=== PATIENT | female | born 1960 ===

== ENCOUNTER → 2017-06-30 | Outpatient (CLI) | payer OTHER ==
[~2017-06-30] MED LIST: AZIT-1 PO; CLAR-13 PO; LEVO-3 PO; LORA-802 PO; TRI05T TP
[2017-06-30 09:30] LABS: PLATELET COUNT, AUTOMATED 228 K/uL (150-450)
== END ==
LOC: LAB 09:14
PROVIDERS: ATTEND Nurse Practitioner Family
DX: Z01.419 Encounter for gynecological examination (general) (routine) without abnormal findings (principal); E03.9 Hypothyroidism, unspecified
CPT/HCPCS: 36415; 82040; 82247; 82310; 82374; 82435; 82465; 82565; 82947; 83718; 84075; 84132; 84155; 84295; 84443; 84450; 84460; 84478; 84520; 85025

== ENCOUNTER → 2017-07-07 | Outpatient (CLI) | payer OTHER ==
[~2017-07-07] MED LIST changes: +LEVO88TA45 PO
== END ==
LOC: LAB 09:11
PROVIDERS: ATTEND Nurse Practitioner Primary Care
DX: R30.0 Dysuria (principal)
CPT/HCPCS: 81001

== ENCOUNTER → 2017-07-08 | Outpatient (CLI) | payer OTHER ==
[~2017-07-08] MED LIST changes: +IOPAMIDOL 76% 75 ML INFUS BTL 75 ML ONE
--- NOTE | 2017-07-08 15:56 | RADIOLOGY IMAGING REPORT ---
FACILITY: [facility] PATIENT NAME: Martha Carvalho : 1960 MR: [id number] V: [id number] EXAM DATE: ORDERING PHYSICIAN: ALBA MOURA TECHNOLOGIST: Location: [facility] Patient: Martha Carvalho : 1960 Visit/Account:[id number] Date of Sevice: 07/08/2017 ABDOMEN/PELVIS W/WO CONTRAST HISTORY: Dysuria, left low back pain, abdominal bloating TECHNIQUE: Axial images acquired through the abdomen/pelvis both with and without IV contrast.. Deysi nal and sagittal reformatting also performed. Dose Lowering Technique One of the following dose optimization techniques was utilized in the performance of this exam: Autom ated exposure control; adjustment of the mA and/or kV according to the patient's size; or use of an i terative reconstruction technique. Specific details can be referenced in the facility's radiology C T exam operational policy. CONTRAST: 75 mL Isovue-370 COMPARISON: None. FINDINGS: Visualized lung bases: Negative. Hepatobiliary: Negative. Spleen: Negative. Adrenals: Negative. Pancreas: Negative. Kidneys ureters and bladder: Tiny cortical hypodensity lower pole left kidney likely represents a cys t although is too small to characterize. There is no demonstration of urolithiasis, hydronephrosis o r hydroureter. Genitalia: Uterus is enlarged retroverted and contains multiple masses which may represent fibroids. The largest is 3.7 cm in diameter and fundal. There is a 2.5 cm left adnexal cyst. Left adnexal v essels are extremely prominent and tortuous with dilatation of the left ovarian vein GI: Is diverticulosis left-sided colon although no CT evidence of acute diverticulitis. Vessels/spaces/nodes: Negative. Bones/soft tissues: There is a small umbilical hernia containing fat. Additional findings: None pertinent. IMPRESSION: No demonstration of urolithiasis, hydronephrosis or hydroureter The uterus is enlarged and retroverted and contains multiple masses which may represent fibroids. Th e largest measures 3.7 cm in diameter and is located in the fundus. This could be further evaluated with pelvic ultrasound. 2.5 cm left adnexal cyst and very prominent tortuous left adnexal vessels with dilatation of the left ovarian vein. Report Dictated By: Izabela Villalobos MD at 07/08/2017 3:43 PM Report E-Signed By: Izabela Villalobos MD at 07/08/2017 3:51 PM WSN:[email or web address]
== END ==
LOC: CT 12:14
PROVIDERS: ATTEND Nurse Practitioner Primary Care
DX: N85.8 Other specified noninflammatory disorders of uterus (principal); K42.9 Umbilical hernia without obstruction or gangrene; N83.202 Unspecified ovarian cyst, left side
CPT/HCPCS: 74178; Q9967

== ENCOUNTER → 2017-09-01 | Outpatient (CLI) | payer OTHER ==
[~2017-09-01] MED LIST changes: -IOPAMIDOL 76% 75 ML INFUS BTL 75 ML ONE
== END ==
LOC: LAB 09:25
PROVIDERS: ATTEND Nurse Practitioner Family
DX: E03.9 Hypothyroidism, unspecified (principal)
CPT/HCPCS: 36415; 84443

== ENCOUNTER 2017-10-09 03:12 | Observation (INO) | payer OTHER ==
--- NOTE | 2017-10-08 22:11 | HISTORY AND PHYSICAL ---
DATE OF ADMISSION: October 09, 2017 CHIEF COMPLAINT Pelvic mass. HISTORY OF PRESENT ILLNESS Patient is a 56-year-old 2, para 2, with persistent ovarian cyst as well as leiomyomas. She was noted to have workup that identified the cyst and which was followed by ultrasound. CA-125 was slightly elevated. The mass was persistent. I had a discussion with Dr. Hui, who is a gynecologic oncologist and recommended hysterectomy with removal in [place]. After discussion of risks and alternatives, patient wished to proceed with robotic-assisted hysterectomy, bilateral salpingo-oophorectomy, possible modified Jose culdoplasty, and diagnostic cystoscopy. CURRENT MEDICATIONS * Clotrimazole 1% topical. * Flonase p.r.n. * Levothyroxine 88 mcg. * Motrin as needed. * Zyrtec 10 mg. ALLERGIES CELEBREX, she gets a rash. REVIEW OF SYSTEMS GENITOURINARY: Per HPI. GENERAL, SKIN, EYES, EARS, NOSE, MOUTH, NECK, RESPIRATORY, CARDIOVASCULAR, GASTROINTESTINAL, NEUROLOGIC, AND PSYCHIATRIC: All reviewed and noncontributory. 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 * Hypothyroidism. SURGICAL HISTORY * 2009, right ankle repair. * 2012, lymph node biopsy in the right groin. * She has had two vaginal deliveries. FAMILY HISTORY Father with cardiovascular disease and hypertension. Mother with cardiovascular disease and hypertension. SOCIAL HISTORY She drinks occasionally. She is a nonsmoker. No illicit drug use. She is retired. PHYSICAL EXAMINATION VITAL SIGNS: BP 110/70, temp 97.9, weight 182. CONSTITUTIONAL: Well-developed, well-nourished female in no distress. SKIN: Without rash or lesions. NECK: Supple, without masses. HEART: Regular rate and rhythm. LUNGS: Clear to auscultation bilaterally. ABDOMEN: Soft, nontender, nondistended. Bowel sounds positive. EXTREMITIES: Nontender, no edema. PSYCHIATRIC: Alert and oriented times three. Normal mood and affect. PELVIC: Normal external female genitalia. Well-estrogenized vaginal lining. Her uterus was enlarged and irregularly shaped, nontender. ASSESSMENT Uterine leiomyomas with intramural leiomyomas with left-sided persistent ovarian cyst. Volume of the uterus was 335 mL. PLAN Plan to perform robotic-assisted hysterectomy with bilateral salpingo- oophorectomy, diagnostic cystoscopy, and possible modified Jose culdoplasty. [facility]
[~2017-10-09] VITALS: Ht 172.7 cm; Wt 80.3 kg
[2017-10-09] VITALS (11 sets, daily range): BP systolic 98–112; BP diastolic 60–84
[~2017-10-09 03:12] MED LIST changes: +CETI10CA8 PO; +FLUT16SP19 NS; +GING550C2 PO; +MAGN250T34 PO; +MAGN400T11; +MULT1CAP59 PO; +tumeric PO
[2017-10-09 07:28] LABS: PLATELET COUNT, AUTOMATED 256 K/uL (150-450)
[2017-10-09] MEDS ORDERED: ROPIVACAINE 0.2% 20 ML VIAL ONE (07:37)
[2017-10-09] MEDS ORDERED: ONDANSETRON 4 MG/2 ML VIAL ONE (07:50)
[2017-10-09] MEDS ORDERED: LIDOCAINE MPF 1% 5 ML VIAL ONE (07:50)
[2017-10-09] MEDS ORDERED: fentaNYL CITR 100 MCG/2 ML AMP ONE ×2 (07:50→12:35)
[2017-10-09] MEDS ORDERED: ROCURONIUM BROM 10 MG/ML 10 ML ONE ×2 (07:50→10:28)
[2017-10-09] MEDS ORDERED: DEXAMETHASONE SOD PHOS 10MG/ML ONE (07:50)
[2017-10-09] MEDS ORDERED: PROPOFOL EMUL(*) 10MG/ML 20 ML 20 ML ONE (07:50)
[2017-10-09] MEDS ORDERED: FAMOTIDINE 20 MG TAB PO ONE (08:00)
[2017-10-09] MEDS ORDERED: MIDAZOLAM 2 MG/2 ML VIAL IVP PRN (08:00)
[2017-10-09] MEDS ORDERED: LIDOCAINE/SOD BICARB 8.4% SYR ID ONE (08:00)
[2017-10-09] MEDS ORDERED: cefOXitin/DEX(*) 2GM/50ML PREM 50 ML IVPB ONE (08:00)
[2017-10-09] MEDS ORDERED: PHENAZOPYRIDINE 200 MG TAB PO ONE (08:00)
[2017-10-09] MEDS ORDERED: HYDROmorphone HCL 2 MG TAB PO ONE (08:00)
[2017-10-09] MEDS ORDERED: NORMOSOL R SOLN(*) 1000 ML BAG 1,000 ML IV PRN (08:00)
--- NOTE | 2017-10-09 08:35 | Post Operative Note ---
Operative Note - ELECTRICAL TEST ENGINEER Operative Day Date: Oct 09, 2017 Physicians Surgeon: COSME Flash Oven Operator: RIAZ STANLEY Anesthesia: PARIKH Diagnosis Pre-Op Diagnosis: LEFT PELVIC MASS LEIOMYOMA INTRAMURAL Post-Op Diagnosis: SAME Procedure Findings: UTERUS 10X6 CM 268 GMS NORMAL LEFT AND RIGHT ATROPHIC OVARY NORMAL BLADDER AND BILATERAL URETERAL JETS AT END OF CASE [id number] Procedure(s): RAH BSO DX CYSTO Complications: 0 Fluids Fluids: 1300 CC NR IV Estimated Blood Loss: 100 CC Dictated Date OP Note Dictated: Oct 09, 2017 Time OP Note Dictated: 12:05 Copies to: BASSAM AGUIAR MD, JOHN MD Oct 09, 2017 08:35
[2017-10-09] MEDS ORDERED: PHENYLEPHRINE 10 MG/1 ML VIAL ONE (09:10)
[2017-10-09] MEDS ORDERED: IBUP800T37 PO (09:15)
[2017-10-09] MEDS ORDERED: HYDR2TAB4 PO (09:15)
--- NOTE | 2017-10-09 09:17 | OB/GYN Discharge Summary ---
Discharge Summary Reason for Hosp/Final Diag: (1) S/P robot-assisted surgical procedure Hospital Course & Plan: RAH PERFORMED WITHOUT COMPLICATIONS ON DAY 1, Pain controlled, voiding Tolerating diet and activity. EKG changes seen in PACU with negative troponins, bradycardia resolved, no cardiac complaints today, will follow up with primary provider for further workup of cardiac issues as indicated Lates Vital Signs Vital Signs Date Time Temp Pulse Resp B/P (MAP) Pulse Ox O2 Delivery O2 Flow Rate FiO2 10/09/17 08:02 98.2 59 16 112/84 (93) 97 Room Air Weight (Pounds): 177 Result Diagram: 10/09/17 0722 Condition: Improved Discharge: Home Home Meds Active Scripts Ibuprofen (IBUPROFEN) 800 Mg Tablet, 1 TAB PO Q8H, #30 TAB 0 Refills Take with food every 8 hours. Prov:BASSAM NICOLE MD 10/09/17 Hydromorphone Hcl (HYDROMORPHONE HCL) 2 Mg Tablet, 2-4 MG PO Q4H for PAIN, #20 TAB 0 Refills Prov:BASSAM NICOLE MD 10/09/17 Levothyroxine Sodium (LEVOTHYROXINE SODIUM) 88 Mcg Tablet, 88 MCG PO QDAY, #90 TAB 1 Refill Prov:LOIS HELM APRN-C 09/02/17 Triamcinolone Acet 0.5% (TRIAMCINOLONE ACETONIDE 0.5%) 15 Gm Cr, 1 LUCI TP BID Y for eczema, #1 GM 1 Refill Prov:LOIS HELM APRN-C 04/21/16 Reported Medications Bettie Root (Bettie Root) 550 Mg Capsule, 550 MG PO DAILY 10/02/17 [tumeric] 600 CAP No Conflict Check, 1 CAP PO DAILY 10/02/17 Magnesium Oxide (MAGNESIUM) 250 Mg Tablet, 250 MG PO DAILY 10/02/17 Multivitamin (MULTIVITAMINS) 1 Each Capsule, 1 EACH PO DAILY, CAPSULE 10/02/17 Fluticasone Prop 50 Mcg Ns (FLONASE 50 MCG NS) 16 Gm [place].susp, 2 SPRAY NS DAILY Y for ALLERGY SYMPTOMS, BOT 10/02/17 Cetirizine Hcl (ZYRTEC) 10 Mg Capsule, 10 MG PO QDAY Y for ALLERGY SYMPTOMS, CAPSULE 10/02/17 Discontinued Reported Medications Scopolamine (Scopolamine) 1 Mg/3 Day Patch.td.3, 1 MG TD ONCE for 3 Days, #1 10/09/17 Magnesium Oxide (Mgo) 400 Mg Tablet, 250 10/02/17 Follow up with: Dr. Nicole [phone] Follow up in: 6 wks PP or PO, 2 wks PO Discharge Diet: As Tolerates Discharge Activity: Pelvic Rest Copies to: BASSAM NICOLE MD; LOIS HELM APRN POLYSOM TECH-C BASSAM NICOLE MD Oct 09, 2017 09:17
[2017-10-09] MEDS ORDERED: GLYCOPYRROLATE 1 MG/5 ML INJ ONE (09:19)
[2017-10-09] MEDS ORDERED: SUGAMMADEX SOD 500 MG/5 ML SDV ONE (11:50)
[2017-10-09] MEDS ORDERED: DLR(*) 1000 ML BAG 1,000 ML IV PRN (11:58)
[2017-10-09] MEDS ORDERED: FAMOTIDINE(*) 20MG/50ML PREMIX 50 ML IVPB PRN (11:58)
[2017-10-09] MEDS ORDERED: PROMETHAZINE 25 MG/ML 1 ML AMP IVP PRN (12:00)
[2017-10-09] MEDS ORDERED: INFLUENZA VIRUS VAC 0.5 ML SYR IM ONE (12:00)
[2017-10-09] MEDS ORDERED: ONDANSETRON 4 MG/2 ML VIAL IV PRN (12:00)
[2017-10-09] MEDS ORDERED: METOCLOPRAMIDE 10 MG/2 ML SDV IV PRN (12:00)
[2017-10-09] MEDS: KETOROLAC 30 MG/ML VIAL IVP SCH ×3 (12:31→23:49)
[2017-10-09] MEDS: ACETAMINOPHEN(*)1000 MG/100 ML 100 ML IVPB SCH ×3 (12:43→23:49)
[2017-10-09] MEDS: SIMETHICONE 80 MG CHEW CHEW SCH ×3 (13:00→21:19)
[2017-10-09] MEDS ORDERED: GLYCOPYRROLATE 0.2MG/ML 1 ML INJ ONE (13:16)
[2017-10-09] MEDS ORDERED: SCOP1PAT16 TD (13:36)
--- NOTE | 2017-10-09 14:13 | EKG ---
FACILITY: [facility] PATIENT NAME: LEON PENA : [id number] MR: [id number] V: [id number] EXAM DATE: ORDERING PHYSICIAN: DELMA PARIKH TECHNOLOGIST: BENNIE Augustin Reason : BISHOP Blood Pressure : / mmHG Vent. Rate : 041 BPM Atrial Rate : 041 BPM P-R Int : 154 ms QRS Dur : 076 ms QT Int : 524 ms P-R-T Axes : 077 091 086 degrees QTc Int : 432 ms Marked sinus bradycardia with premature ventricular complex Rightward axis Low voltage QRS ST and T wave abnormality, consider anterior ischemia Abnormal ECG No previous ECGs available Confirmed by YEIMI BARNARD ([id number]) on 10/09/2017 4:21:19 PM Referred By: COSME Confirmed By:YEIMI BARNARD
--- NOTE | 2017-10-09 14:42 | Hospitalist Consultation ---
History of Present Illness Requesting Physician Dr. Aguiar Reason for Consult Abnormal EKG Chief Complaint Abnormal EKG History of Present Illness 56yo female with PMHx significant for localized MAC infection, uterine fibroids , hypothyroidism. She underwent robotic assisted hysterectomy with Dr. Aguiar earlier today. Post-operatively she was noted to be bradycardic. She had EKG done which showed T wave inversion and flattening through precordial leads. She denies any CP or dyspnea at this time. She did admit to some chest "fullness" while in PACU. She has no history of heart or lung disease. She exercises on a regular basis without problems. She does recall being told she had an abnormality on her EKG done for . She has family history of CAD in brother at ~60 years old (CABG), mother at 70+ (CABG), and father (CABG) at 80. She does not smoke (her mother did for short time while she was growing up). She does not have a history of HTN, DM, or hyperlipidemia. History Problems: (1) S/P surgical manipulation of ankle joint Status: Resolved (2) History of MAC infection Status: Chronic (3) Hypothyroidism Status: Chronic Home Meds Active Scripts Ibuprofen (IBUPROFEN) 800 Mg Tablet, 1 TAB PO Q8H, #30 TAB 0 Refills Take with food every 8 hours. Prov:BASSAM AGUIAR MD 10/09/17 Hydromorphone Hcl (HYDROMORPHONE HCL) 2 Mg Tablet, 2-4 MG PO Q4H for PAIN, #20 TAB 0 Refills Prov:BASSAM AGUIAR MD 10/09/17 Levothyroxine Sodium (LEVOTHYROXINE SODIUM) 88 Mcg Tablet, 88 MCG PO QDAY, #90 TAB 1 Refill Prov:LOIS HELM APRN PROPELLER ENGINEER-C 09/02/17 Triamcinolone Acet 0.5% (TRIAMCINOLONE ACETONIDE 0.5%) 15 Gm Cr, 1 LUCI TP BID Y for eczema, #1 GM 1 Refill Prov:LOIS HELM APRN PROPELLER ENGINEER-C 04/21/16 Reported Medications Scopolamine (Scopolamine) 1 Mg/3 Day Patch.td.3, 1 MG TD ONCE for 3 Days, #1 10/09/17 Bettie Root (Bettie Root) 550 Mg Capsule, 550 MG PO DAILY 10/02/17 [tumeric] No Conflict Check, PO DAILY 10/02/17 Magnesium Oxide (MAGNESIUM) 250 Mg Tablet, 250 MG PO DAILY 10/02/17 Magnesium Oxide (Mgo) 400 Mg Tablet, 250 10/02/17 Multivitamin (MULTIVITAMINS) 1 Each Capsule, 1 EACH PO DAILY, CAPSULE 10/02/17 Fluticasone Prop 50 Mcg Ns (FLONASE 50 MCG NS) 16 Gm [place].susp, 1 SPRAY NS BID Y for ALLERGY SYMPTOMS, BOT 10/02/17 Cetirizine Hcl (ZYRTEC) 10 Mg Capsule, 10 MG PO QDAY Y for ALLERGY SYMPTOMS, CAPSULE 10/02/17 Discontinued Reported Medications Loratadine (CLARITIN) 10 Mg Tablet, 10 MG PO PRN 02/20/14 Allergies: Coded Allergies: celecoxib (Unverified Allergy, Intermediate, RASH ALL OVER, 10/02/17) amoxicillin (Unverified Adverse Reaction, Intermediate, NAUSEA/VOMITING, ) clavulanic acid (Unverified Adverse Reaction, Intermediate, NAUSEA/ VOMITING, 10/02/17) Patient History: FH: CABG (coronary artery bypass surgery) FATHER MOTHER FH: COPD (chronic obstructive pulmonary disease) MOTHER FH: colon cancer GRANDFATHER GREAT AUNT FH: diabetes mellitus GRANDMOHTER GRANDMOHTER Hx Smoking: No Smoking Status: Never Smoker Caffeine Intake: Tea Caffeine/Cups Per Day: 1-2 Hx Alcohol Use: Yes Alcohol Used: Liquor Hx Substance Use Disorder: No Social Drug Use: Never History of IV Drug Use: No Review of Systems Cardiovascular: No Chest Pain, No Palpitations Respiratory: No Shortness of Breath Exam Vital Signs Vital Signs Date Time Temp Pulse Resp B/P (MAP) Pulse Ox O2 Delivery O2 Flow Rate FiO2 10/09/17 12:11 70 16 100 10/09/17 08:02 98.2 112/84 (93) Room Air General Appearance: Alert, Awake Neuro: No Gross deficits Eyes: PERRLA Cardiovascular: Regular Rate and Rhythm, No Edema Respiratory: Clear to Auscultation Chest: No Tenderness Extremities: Warm, Pulses (normal), Perfused Psych: Alert & Oriented X3 Medical Decision Making Data Points Result Diagram: 10/09/17 0722 Assessment and Plan Problems: (1) Abnormal EKG Status: Acute Assessment & Plan: She is asymptomatic, but does have T wave abnormalities on her current EKG. Her is going to get her old EKG for comparison. Agree, it may be edwards to admit to telemetry to monitor and check serial troponin levels. I suspect she is low probability this is an ischemic cardiac etiology. Will proceed with further work-up/treatment pending these results. Venous Thromboembolism Antithrombotics Is Pt On Any Antithrombotics?: No (recent surgery) YEIMI BARNARD MD Oct 09, 2017 14:42
--- NOTE | 2017-10-09 16:39 | OPERATIVE REPORT 1 ---
EVENT DATE: October 09, 2017 SURGEON: Armani Nicole MD ANESTHESIOLOGIST: Torey Grewal MD ANESTHESIA: General. PLASTIC MOLDING OPERATOR: Keli Benoit PA-C PREOPERATIVE DIAGNOSES 1. Left-sided pelvic mass. 2. Leiomyoma which is intramural. POSTOPERATIVE DIAGNOSES 1. Left-sided pelvic mass. 2. Leiomyoma which is intramural. PROCEDURE PERFORMED Robotic-assisted hysterectomy with bilateral salpingo-oophorectomy and diagnostic cystoscopy. COMPLICATIONS None. FLUIDS Normosol 1300 mL IV. ESTIMATED BLOOD LOSS 100 mL INDICATIONS Patient is a 56-year-old 2 with intramural leiomyomas and findings on ultrasound of a 2 cm cystic mass on her left ovary. After discussions of risks and alternatives, patient desired to proceed with robotic-assisted hysterectomy , bilateral salpingo-oophorectomy, and diagnostic cystoscopy. FINDINGS Uterus 10 x 6 cm, which was 268 g. Normal left and right atrophic-type ovaries. Cyst was not identified. Normal bladder and bilateral ureteral jets at the end of the case. DESCRIPTION OF PROCEDURE After informed consent was obtained, the patient was taken to the operating room with the IV running, placed in a supine position where general anesthesia was obtained without difficulty. She was then placed in the [facility], examined under anesthesia with the above findings. She was then prepped and draped in the usual fashion. A weighted speculum was placed into the vagina. The cervix was grasped with a single-toothed tenaculum. Uterus sounded to 10 cm. The VCare uterine manipulator was then sewn to the cervix with 0 Vicryl. After the insertion of the VCare to provide a means to manipulate the uterus, a George catheter was placed. Legs were lowered. Attention then turned to the abdomen where 0.2 Naropin was infiltrated above the umbilicus and a skin incision made with the scalpel. A Veress needle was advanced into the abdominal cavity. Normal CO2 filling pressures were noted. The 8 mm port was then advanced under laparoscopic visualization, and intra-abdominal placement was confirmed by laparoscopy. The #1 and #2 ports were placed on the patient's left lateral to the umbilical port in a similar fashion with 0.2 Naropin, skin incision with a scalpel, and advancing under direct visualization. The #4 port was placed lateral to the #3, and the medical technician assistant port was placed lateral to the # 4 port in a similar fashion, 0.2 Naropin, skin incision with a scalpel, and advancing the trocars under direct visualization. After all the trocars were placed, patient was placed in Trendelenburg positioning. The robot was positioned for docking. Docking and targeting were successful. The remainder of the arms were docked. Once all the arms were docked, a grasper was placed in #1, a scissors in #2, a camera was in #3, and the vessel sealer in #4. Once these were advanced into the abdominal cavity, Dr. Nicole attended the console for performance of the robotic hysterectomy. The inspection of the abdomen revealed normal anatomy. Searching for what could appear to be a cystic mass on ultrasound was not observed. Both ovaries appeared to be atrophic. No other abnormalities were noted. Attention was turned to the right tube and ovary, the right ovary identified and grasped with the grasper, the vessel sealer was used to grasp the infundibulopelvic ligament. This was coapted and transected. The mesosalpinx was then coapted and transected down towards the round ligament with the vessel sealer. The round ligament was then coapted and transected. The broad ligament was further transected down towards the lower uterine segment with the vessel sealer. The grasper was used to grasp the peritoneum above the cervix. The scissors were used to create a bladder flap on the peritoneum anteriorly and then posteriorly, the posterior leaf and transecting the peritoneum down towards the right uterosacral ligament. The uterine arteries were identified, and then the vessel sealer was used to grasp the uterine arteries at their insertion in the lower uterine segment and then were sealed twice and then cut. The vessel sealer was then used to work parallel to the vessels and sealed, and then the scissors were used to incise the vessels, creating the uterine pedicle. Once the pedicle was sealed and transected, attention then turned to the patient's left where the right tube and ovary were identified. The infundibulopelvic ligament on the right was grasped with the vessel sealer, sealed, and transected, and then the mesosalpinx was sealed and transected down towards the round ligament. The round ligament was coapted and transected with the vessel sealer. The vessel sealer was used to transect the broad ligament down parallel to the uterus down towards the lower uterine segment. The ureters had been identified bilaterally prior to use of the vessel sealer and remained away from the vessel sealer. As the peritoneum was transected, the ureter further fell laterally. The completion of a bladder flap was then performed with the anny anteriorly, and then the scissors were used to create a peritoneal incision down towards the left uterosacral ligament. A colpotomy was performed at the 12 o'clock position. The uterine arteries were then identified at their insertion over the lower uterine segment. The vessel sealer was used to grasp the uterine arteries perpendicular to their insertion. They were sealed twice and then cut. The vessel sealer was then used parallel to the cervix and used to seal and transect with the assistance of the anny. Once the pedicle was developed and sealed, the colpotomy was performed following the VCare cup in a counterclockwise manner down through the left-sided attachments down through the uterosacrals and posteriorly. Attention then turned to the uterus on the patient's left, and completion of the colpotomy was performed from the 12 o' clock to the 6 o'clock position in a clockwise fashion. The uterus was then removed from the vagina. A grenade was placed in the vagina to allow pneumoperitoneum. Suture of 0 Vicryl was used to plicate the uterosacrals to the ipsilateral portion of the vaginal lining on the left and the right in an interrupted fashion. The vaginal cuff was then closed with 0 Vicryl in a running fashion on the right side, and then in a similar fashion on the left, and then tied in the midline. Irrigation was performed. No further bleeding was noted. There was slight oozing from the peritoneal side on the left. This was made hemostatic with a bipolar fenestrated grasper. No further bleeding was noted. The instruments were removed from the abdominal cavity. The robot was then undocked, and the Shama was used to help close the assist port on the patient's right side with 0 Vicryl. The remainder of the trocars were removed, and the gas was allowed to escape from the abdomen. Skin was closed with 4-0 Monocryl. Cystoscopy was performed. The George was removed. The cystoscope was advanced. No injuries were noted to the bladder. Bilateral ureteral jets could be identified. Bladder was drained. The George catheter was replaced. The vaginal cuff was examined and noted to have an excellent closure. No bleeding was noted vaginally. All instruments were removed from the vagina. Patient was taken out of the [facility] stirru, awakened from anesthesia, and taken to the recovery room in stable condition. KEN
--- NOTE | 2017-10-09 18:27 | OB/GYN Progress Note ---
OB Subjective Progress Notes Subjective pain controlled no chest pain or sob GI: NEG Nausea, NEG Vomiting, NEG Flatus Pain: Mild OB Objective Physical Exam Vital Signs Date Time Temp Pulse Resp B/P (MAP) Pulse Ox O2 Delivery O2 Flow Rate FiO2 10/09/17 17:30 48 107/76 (86) 95 Room Air 10/09/17 15:50 2.0 10/09/17 15:28 98.4 16 Intake and Output 10/10/17 07:00 Intake Total 3300 ml Output Total 600 ml Balance 2700 ml Intake Oral 600 ml IV Total 2700 ml Output Urine Total 500 ml Estimated Blood Loss 100 ml Cardiovascular: Regular Rate and Rhythm, No Edema Respiratory: Clear to Auscultation Abdomen: Soft, Non-Tender, Non-Distended, Bowel Sounds Present Extremities: No Edema Psychological: Alert & Oriented X3 Result Diagram: 10/09/17 0722 Assessment and Plan Problems: (1) S/P robot-assisted surgical procedure Assessment & Plan: pain controlled will nadine dominguez in am. Dr Leyva to continue to follow troponin levels to work up EKG changes BASSAM AGUIAR MD Oct 09, 2017 18:27
[2017-10-09] MEDS: HYDROmorphone HCL 2 MG TAB PO PRN (20:11)
[2017-10-09] MEDS: FAMOTIDINE 20 MG TAB PO SCH (21:19)
[2017-10-09] MEDS: DOCUSATE CALCIUM 240 MG CAP PO SCH (21:19)
[2017-10-10 03:13] VITALS: BP 113/68
[2017-10-10] MEDS: HYDROmorphone HCL 2 MG TAB PO PRN ×2 (03:13→09:11)
[2017-10-10] MEDS ORDERED: LEVOTHYROXINE SOD 0.088 MG TAB PO SCH (06:00)
[2017-10-10] MEDS ORDERED: NS 0.9% IRRIGATION 500 ML PLCT 500 ML IR ONE (06:17)
[2017-10-10] MEDS: ACETAMINOPHEN(*)1000 MG/100 ML 100 ML IVPB SCH (06:17)
[2017-10-10] MEDS: IBUPROFEN 800 MG TAB PO SCH ×2 (06:32→13:27)
[2017-10-10 06:46] LABS: PLATELET COUNT, AUTOMATED 204 K/uL (150-450)
[2017-10-10 07:15] VITALS: BP 106/66
--- NOTE | 2017-10-10 08:14 | OB/GYN Progress Note ---
OB Subjective Progress Notes Subjective pain controlled tolerating diet and activity, GI: POS Flatus, NEG Nausea, NEG Vomiting : Voiding Well Pain: Mild OB Objective Physical Exam Vital Signs Date Time Temp Pulse Resp B/P (MAP) Pulse Ox O2 Delivery O2 Flow Rate FiO2 10/10/17 07:38 96 10/10/17 07:38 Room Air 10/10/17 07:15 98.6 56 106/66 (79) 10/10/17 03:13 16 10/09/17 15:50 2.0 Intake and Output 10/11/17 07:00 Intake Total 175 ml Output Total 337 ml Balance -162 ml Other 175 ml Output Urine Total 300 ml Post Void Residual 37 ml Bladder Scan Volume Amount 31-50 ml Cardiovascular: Regular Rate and Rhythm, No Edema Respiratory: Clear to Auscultation Abdomen: Soft, Non-Tender, Non-Distended, Bowel Sounds Present, Bowel Sounds Present Extremities: No Edema Psychological: Alert & Oriented X3 Result Diagram: 10/10/17 0559 10/10/17 0559 Assessment and Plan Post Op Day: 1 HEAD HOST/HOSTESS Assessment: Stable HEAD HOST/HOSTESS Plan: Discharge Home Today Problems: (1) S/P robot-assisted surgical procedure Assessment & Plan: pain controlled tolerating diet and activity, voiding no cardiac complaints troponins negative, will follow up with primary provider for further workup of cardiac issues if indicated BASSAM AGUIAR MD Oct 10, 2017 08:13
[2017-10-10] MEDS: FAMOTIDINE 20 MG TAB PO SCH (09:10)
[2017-10-10] MEDS: SIMETHICONE 80 MG CHEW CHEW SCH ×2 (09:10→13:27)
[2017-10-10] MEDS: DOCUSATE CALCIUM 240 MG CAP PO SCH (09:10)
--- NOTE | 2017-10-10 10:50 | Hospitalist Progress Note ---
Subjective Progress Notes Subjective No cp. She had some mild SOB last night with a lower heart rate. Doing well now. Physical Exam Vital Signs Date Time Temp Pulse Resp B/P (MAP) Pulse Ox O2 Delivery O2 Flow Rate FiO2 10/10/17 07:38 96 10/10/17 07:38 Room Air 10/10/17 07:15 98.6 56 106/66 (79) 10/10/17 03:13 16 10/09/17 15:50 2.0 Intake and Output 10/11/17 07:00 Intake Total 415 ml Output Total 687 ml Balance -272 ml Intake Oral 240 ml Other 175 ml Output Urine Total 650 ml Post Void Residual 37 ml Bladder Scan Volume Amount 31-50 ml General Appearance: Alert, Awake, No Acute Distress Result Diagram: 10/10/17 0559 10/10/17 0559 Assessment and Plan Problems: (1) Abnormal EKG Status: Acute Assessment & Plan: She is asymptomatic, but did have T wave abnormalities on her current EKG that was new from previous. She had negative troponins. She is doing well. She should have a stress test with imaging when she is able to exercise after surgery. Will defer to her PCP to schedule. Copies to: BASSAM AGUIAR MD; LOIS HELM APRN SENIOR IT PROJECT MANAGER-C Exam Sepsis Risk: No Definite Risk NIKITA WASHINGTON MD Oct 10, 2017 10:50
[2017-10-10 11:51] VITALS: BP 120/75
[2017-10-10 12:56] VITALS: Ht 172.7 cm; Wt 80.3 kg
== END 2017-10-10 08:31 | disposition home or self-care (01) ==
LOC: OR 03:12 → MED 15:22
PROVIDERS: ADMIT Obstetrics & Gynecology; ATTEND Obstetrics & Gynecology
DX: D25.1 Intramural leiomyoma of uterus (principal); R19.00 Intra-abdominal and pelvic swelling, mass and lump, unspecified site; E03.9 Hypothyroidism, unspecified; R00.1 Bradycardia, unspecified
CPT/HCPCS: 36415; 58573; 82553; 84484; 84703; 85025; 88307; 93005; G0378; J0131; J0694; J1100; J1885; J2001; J2370; J2405; J2704; J2795; J3010; J3490; S2900; 82040; 82247; 82310; 82374; 82435; 82565; 82947; 84075; 84132; 84155; 84295; 84450; 84460; 84520

== ENCOUNTER → 2017-11-16 | Outpatient (CLI) | payer OTHER ==
[2017-10-10 12:56] VITALS: BMI 26.9
[~2017-11-16] MED LIST changes: +HYDR2TAB4 PO; +IBUP800T37 PO; +SCOP1PAT16 TD
[2017-11-16 12:17] LABS: PLATELET COUNT, AUTOMATED 217 K/uL (150-450)
== END ==
LOC: LAB 11:06
PROVIDERS: ATTEND Nurse Practitioner Primary Care
DX: R30.0 Dysuria (principal); B96.89 Other specified bacterial agents as the cause of diseases classified elsewhere
CPT/HCPCS: 36415; 81001; 82040; 82247; 82310; 82374; 82435; 82565; 82947; 84075; 84132; 84155; 84295; 84450; 84460; 84520; 85025; 87088

== ENCOUNTER → 2017-11-17 | Outpatient (CLI) | payer OTHER ==
[2017-10-10 12:56] VITALS: BMI 26.9
--- NOTE | 2017-11-17 12:15 | RADIOLOGY IMAGING REPORT ---
FACILITY: [facility] [place] PATIENT NAME: Martha Carvalho : 1960 MR: [id number] V: [id number] EXAM DATE: ORDERING PHYSICIAN: SANTOS ENCARNACION TECHNOLOGIST: Location: [facility] Patient: Martha Carvalho : 1960 Visit/Account:[id number] Date of Sevice: 11/17/2017 ABDOMEN/PELVIS W/O CONTRAST HISTORY: Hematuria, urolithiasis TECHNIQUE: Axial images acquired through the abdomen/pelvis. Coronal and sagittal reformatting also performed. No IV contrast administered. Dose Lowering Technique One of the following dose optimization techniques was utilized in the performance of this exam: Autom ated exposure control; adjustment of the mA and/or kV according to the patient's size; or use of an i terative reconstruction technique. Specific details can be referenced in the facility's radiology C T exam operational policy. COMPARISON: July 08, 2017 FINDINGS: Visualized lung bases: Negative. Hepatobiliary: Negative. Spleen: Negative. Adrenals: Negative. Pancreas: Negative. Kidneys ureters and bladder: Negative. Genitalia: Postsurgical changes from a hysterectomy. There is a tiny 1.3 x 0.8 cm hypodense collect ion just posterior to the superior aspect of the vagina may represent a tiny postoperative collection although does not appear to represent an abscess. GI: Negative. Vessels/spaces/nodes: Negative. Bones/soft tissues: There is a tiny umbilical hernia containing fat Additional findings: None pertinent. IMPRESSION: Postsurgical changes from hysterectomy. No evidence of urolithiasis, hydronephrosis or hydroureter Report Dictated By: Izabela Villalobos MD at 11/17/2017 11:55 AM Report E-Signed By: Izabela Villalobos MD at 11/17/2017 12:10 PM WSN:[id number]
== END ==
LOC: CT 10:32
DX: R31.1 Benign essential microscopic hematuria (principal)
CPT/HCPCS: 74176

== ENCOUNTER → 2017-11-17 | Outpatient (CLI) | payer OTHER ==
[2017-10-10 12:56] VITALS: BMI 26.9
== END ==
LOC: LAB 08:43
PROVIDERS: ATTEND Nurse Practitioner Primary Care
DX: R31.9 Hematuria, unspecified (principal)
CPT/HCPCS: 87088

== ENCOUNTER → 2018-02-09 | Outpatient (CLI) | payer OTHER ==
[2017-10-10 12:56] VITALS: BMI 26.9
--- NOTE | 2018-02-09 16:40 | RADIOLOGY IMAGING REPORT ---
FACILITY: [facility] PATIENT NAME: Martha Carvalho : 1960 MR: [id number] V: [id number] EXAM DATE: ORDERING PHYSICIAN: LOIS HELM TECHNOLOGIST: Location: [facility] Patient: Martha Carvalho : 1960 Visit/Account:[id number] Date of Sevice: 02/09/2018 EXAMINATION: Single Isotope SPECT Imaging with Exercise and Gated SPECT Imaging DATE OF EXAMINATION: February 09, 2018 DATE OF INTERPRETATION: February 09, 2018 REQUESTING PHYSICIAN: LOIS HELM INDICATION: The patient is a 57-year-old female evaluated for chest pain. PROCEDURE: After informed consent the patient received an intravenous injection of 11.5 mCi of Tc-9 9m sestamibi followed at the appropriate time interval by rest imaging. The patient then exercised a ccording to the standard Andres protocol for 9 minutes achieving 10 METS. Resting heart rate was 62 b pm with a peak heart rate of 164 bpm which is 99 % of maximal predicted heart rate for age. Blood p ressure at rest was 121 / 75; blood pressure during exercise was 177 / 97. There was no chest pain d uring exercise. Exercise was discontinued because of fatigue. Baseline EKG demonstrates sinus rhyth m. There were no EKG changes of ischemia at peak exercise. Approximately one minute and 30 seconds prior to the termination of exercise, the patient received an intravenous injection of 29.7 mCi of Tc -99m sestamibi followed by stress imaging. RAW DATA: Examination of the summed raw data revealed a good quality study. MYOCARDIAL PERFUSION: The tomographic images demonstrate normal perfusion rest and stress. GATED IMAGES: The gated images demonstrate normal regional wall motion and thickening, LVEF 70% IMPRESSION: 1. Negative ETT for angina or ECG changes of ischemia at a good exercise level 2. Normal myocardial perfusion scan. 3. Normal LV systolic function; LVEF 70%. Report Dictated By: Randolph Cronin MD at 02/09/2018 4:33 PM Report E-Signed By: Randolph Cronin MD at 02/09/2018 4:37 PM WSN:[id number]
== END ==
LOC: NUC 00:56
PROVIDERS: ATTEND Nurse Practitioner Family
DX: E03.9 Hypothyroidism, unspecified (principal)
CPT/HCPCS: 36415; 78452; 84443; 93017; A9500

== ENCOUNTER → 2018-09-29 | Outpatient (CLI) | payer OTHER ==
[2017-10-10 12:56] VITALS: BMI 26.9
[~2018-09-29] MED LIST changes: +DOXY-179 PO; +LEVO750T27 PO; +LEVO75TA73 PO; +MECL25TA9 PO
== END ==
LOC: LAB 09:40
PROVIDERS: ATTEND Nurse Practitioner Family
DX: E03.9 Hypothyroidism, unspecified (principal)
CPT/HCPCS: 36415; 84443

== ENCOUNTER → 2018-10-11 | Outpatient (CLI) | payer OTHER ==
[2017-10-10 12:56] VITALS: BMI 26.9
[~2018-10-11] MED LIST changes: +NYST100016 PO; +SULF-198 PO
== END ==
LOC: LAB 09:24
PROVIDERS: ATTEND Nurse Practitioner Family
DX: L02.214 Cutaneous abscess of groin (principal)
CPT/HCPCS: 87070

== ENCOUNTER → 2018-11-02 | Outpatient (CLI) | payer OTHER ==
[2017-10-10 12:56] VITALS: BMI 26.9
[~2018-11-02] MED LIST changes: +FLU150 PO
[2018-11-02 08:20] LABS: PLATELET COUNT, AUTOMATED 202 K/uL (150-450)
== END ==
LOC: LAB 08:03
PROVIDERS: ATTEND Nurse Practitioner Family
DX: Z00.00 Encounter for general adult medical examination without abnormal findings (principal); E03.9 Hypothyroidism, unspecified
CPT/HCPCS: 36415; 82040; 82247; 82310; 82374; 82435; 82465; 82565; 82947; 83718; 84075; 84132; 84155; 84295; 84443; 84450; 84460; 84478; 84520; 85025